=== PATIENT | male | born 1985 | race Caucasian/White ===

== ENCOUNTER 2018-06-09 12:43 | Emergency (ER) | payer OTHER ==
[~2018-06-09] VITALS: Ht 165.1 cm; Wt 68.0 kg
[2018-06-09] MEDS ORDERED: RANITIDINE HCL75 MG PO (13:11)
[2018-06-09] MEDS ORDERED: OMEPRAZOLE20 MG PO (13:11)
[2018-06-09] MEDS ORDERED: PROTONIX40 MG PO (15:04)
[2018-06-09] MEDS ORDERED: ONDANSETRON ODT8 MG PO (15:04)
== END 2018-06-09 15:26 | disposition home or self-care (01) ==
LOC: ED 12:43
DX: K21.9 Gastro-esophageal reflux disease without esophagitis (principal); K52.9 Noninfective gastroenteritis and colitis, unspecified; Z79.899 Other long term (current) drug therapy
CPT/HCPCS: 74177; 80053; 81001; 82150; 83690; 85025; 96361; 96374; 96375; 99284; J1170; J2405; J7030; Q9967

== ENCOUNTER 2018-09-09 06:55 | Day surgery (SDC) | payer OTHER ==
[~2018-09-09] VITALS: Ht 165.1 cm; Wt 63.5 kg
[~2018-09-09 06:55] MED LIST: OMEPRAZOLE20 MG PO; ONDANSETRON ODT8 MG PO; PROTONIX40 MG PO; RANITIDINE HCL75 MG PO; SUCRALFATE1 GM PO
--- NOTE | 2018-09-09 11:19 | NUR ---
09/09/18 Fabian9 Stacey Pringle 1109 PT ARRIVED TO PACU WITH ORAL AIRWAY IN PLACE, O2 MASK 6L, AND PT NONAROUSABLE TO PAINFUL STIMULI. 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 1116 ORAL AIRWAY REMAINS IN PLACE, JAW THRUST NEEDED OFF AND ON TO MAINTAIN AIRWAY. PT SLIGHTLY REACTIVE TO PAIN. VSS. RESP EVEN AND UNLABORED BUT SHALLOW.
[2018-09-09] MEDS ORDERED: IBUPROFEN600 MG PO (11:21)
[2018-09-09] MEDS ORDERED: OXYCODON-ACETA1 EAC2 PO (11:22)
[2018-09-09] MEDS ORDERED: MAPAP325 MG PO (11:22)
--- NOTE | 2018-09-09 11:58 | NUR ---
PATIENT ARRIVES BACK TO DAY SURGERY WITH SQUINTED EYES. PATIENT IS WRITING IN THE BED. CALL LIGHT W/IN REACH. ICED WATER GIVEN. PRN GIVEN FOR PAIN.
--- NOTE | 2018-09-09 12:09 | NUR ---
PER DR. FLOYD'S REQUEST STERI STRIPS TO UMBILICUS REAPPLIED. PATIENT TOLERATES THIS WELL.
--- NOTE | 2018-09-09 12:24 | NUR ---
PT SITTNG UP IN BED, ALERT AND ORIENTED. HE SEEMS PREPARED, MENTIONED THAT HE HAS HAD PAIN AND DISCOMFORT WITH CAROLIN FOR ABOUT A YEAR-LOOKING FORWARD TO SOME RELIEF. FEW QUESTIONS, PT REQUESTED PRAYER. WILL FOLLOW NEEDED
--- NOTE | 2018-09-09 15:21 | NUR ---
PATIENT RESTING W/EYES CLOSED. WAKES EASILY WHEN THIS RN ENTERS THE ROOM. PATIENT DENIES URGE TO VOID. CALL LIGHT W/IN REACH.
--- NOTE | 2018-09-10 16:20 | OR ---
[facility] [address], [place] [address] Signed DATE OF OPERATION: 09/09/2018 SURGEON: Sid Floyd MD PREOPERATIVE DIAGNOSIS: Acalculous cholecystitis. POSTOPERATIVE DIAGNOSIS: Acalculous cholecystitis with cholesterol debris within gallbladder. PROCEDURES: 1. Laparoscopic cholecystectomy with intraoperative cholangiogram. 2. Surgeon-directed fluoroscopy. ANESTHESIA: General endotracheal. ANESTHESIOLOGIST: Luis Alcocer CRNA. INDICATION: This 33-year-old white man is a patient of Dr. Martina Bruno and originally referred for consideration of intractable reflux problems. Upper endoscopy did confirm hiatal hernia and findings suggestive of low-grade esophagitis. Notably, however, he was not much benefitted from PPI medication as well as Carafate, not completely so. Further questioning reveals he had symptoms highly suggestive of biliary disease as well. On that basis, gallbladder ultrasound was performed, which showed no sign of stones. Subsequent CCK HIDA test was performed (actually fat stimulated HIDA scan), which showed essentially no ejection fraction and reproduction of nausea and upper abdominal pain symptoms. On that basis, he is considered to have acalculous cholecystitis and is admitted at this time for cholecystectomy preferred by laparoscopic approach. The risks of bleeding, infection, bile duct injury, need for open procedure, and failure to cure his symptoms were reviewed in detail and he understood and wished to proceed. Notably, if he should not have complete resolution of his symptoms with this operation, consideration will be made for antireflux operation. DESCRIPTION OF PROCEDURE: The patient was brought to the operating room, given a general endotracheal anesthetic. Preoperative antibiotic Ancef was given. Sequential compression device stockings and heparin subcutaneously administered. The abdomen was clipped and prepared with a Electronically Signed By: SID FLOYD MD 09/10/18 1620 PATIENT NAME: MARTINA FLORES OPERATIVE REPORT DATE OF : 87 REPORT #: [id number] PHYSICIAN: SID FLOYD MD PCP: MARTINA BRUNO MD REPORT IS CONFIDENTIAL AND NOT TO BE RELEASED WITHOUT AUTHORIZATION [facility] [address], [place] [address] Signed chlorhexidine solution and draped sterilely. An infraumbilical incision was made and using an open Pavel cannula technique, pneumoperitoneum was achieved to a level of 14 mmHg with carbon dioxide gas. Intraabdominal inspection showed no sign of ascites or carcinomatosis. The liver appeared normal. Three additional trocars were placed in usual configuration in the subxiphoid, right midclavicular, and right anterior axillary line. A 10 mm port was used in the epigastric area. Ports of 5 mm were used in the subcostal area. The gallbladder was exposed and elevated and adhesions of omentum to the undersurface were taken down with blunt electrocautery dissection for better elevation of the gallbladder itself. The infundibulum was grasped and using blunt and electrocautery dissection with a very meticulous technique, the cystic duct was dissected free from surrounding structures. A small branch of the cystic artery to the gallbladder proper was noted and secured and divided as well. The cystic duct was surprisingly small in its size. A clip was applied across gallbladder cystic duct junction and a transverse choledochotomy made in the cystic duct. Attempts to intubate the cystic duct with the Dunn type cholangiocatheter were unsuccessful. An additional transverse choledochotomy was made in the cystic duct and mindful that the duct was nearly the size of the catheter itself. Ultimately, the tip of the catheter could be insinuated into the opening though not threaded down the cystic duct. This was enough to allow for flow, however. Intraoperative cholangiography was undertaken using surgeon-directed fluoroscopy showing free flow of contrast in biliary tree with prompt emptying into the duodenum. There was no sign of biliary anomaly, filling defect or other abnormality. The catheter was removed and the cystic duct was triply clipped and divided and the gallbladder dissected free in a retrograde fashion using electrocautery. A small rent was made in the gallbladder, which allowed for spillage of bile, but no stones. This was quickly grasped and only minimal bile spillage was noted. The gallbladder was placed in an endobag and extracted through the infraumbilical port site without problem, opened on the back table and found to have chronic inflammatory change as well as bits of yellow cholesterol stone type debris. There are no well-formed stones, however. Irrigation was undertaken in subhepatic space and over the liver clearing the fluid entirely. The clips appeared to be secure in the cystic duct and elsewhere. The trocars were removed under direct visualization showing no sign of bleeding. The infraumbilical incision was secured with interrupted 0 Vicryl suture as well as a running 0 PDS suture. Irrigation was undertaken in all the wounds. A 20 mL of 0.25% Marcaine with epinephrine was injected locally. The skin was then closed with interrupted 3-0 Vicryl. Steri-Strips were applied. The patient was ultimately extubated and transferred to recovery in good condition having suffered no complication. Electronically Signed By: SID FLOYD MD 09/10/18 1620 PATIENT NAME: MARTINA FLORES OPERATIVE REPORT DATE OF : [birth year] REPORT #: [id number] PHYSICIAN: SID FLOYD MD PCP: MARTINA BRUNO MD REPORT IS CONFIDENTIAL AND NOT TO BE RELEASED WITHOUT AUTHORIZATION [facility] [address] [place] [address] Signed Sponge, needle, and instrument counts reported as correct x3. MD LISA Lemon/KAUSHAL /[id number] cc: Martina Bruno MD Copies: MARTINA BRUNO MD ~ Electronically Signed By: SID FLOYD MD 09/10/18 1620 PATIENT NAME: MARTINA FLORES OPERATIVE REPORT DATE OF : [birth year] REPORT #: [id number] PHYSICIAN: SID FLOYD MD PCP: MARTINA BRUNO MD REPORT IS CONFIDENTIAL AND NOT TO BE RELEASED WITHOUT AUTHORIZATION
== END 2018-09-09 16:40 | disposition home or self-care (01) ==
LOC: DS 06:55
PROVIDERS: Surgery
PROC: BF13YZZ Fluoroscopy of Gallbladder and Bile Ducts using Other Contrast (ICD-10-PCS; 2018-09-09)
PROC: 0FT44ZZ Resection of Gallbladder, Percutaneous Endoscopic Approach (ICD-10-PCS; principal; 2018-09-09 08:45)
DX: K81.9 Cholecystitis, unspecified (principal); R59.0 Localized enlarged lymph nodes; K21.0 Gastro-esophageal reflux disease with esophagitis; K59.00 Constipation, unspecified; Z79.899 Other long term (current) drug therapy
CPT/HCPCS: 00840; 74300; J0131; J0690; J1100; J1644; J2250; J2270; J2405; J2550; J2704; J2765; J3010; J7120; Q9967

== ENCOUNTER 2020-01-27 08:24 | Day surgery (SDC) | payer OTHER ==
[~2020-01-27] VITALS: Ht 165.1 cm; Wt 70.3 kg
[~2020-01-27 08:24] MED LIST changes: +IBUPROFEN600 MG PO; +MAPAP325 MG PO; +OXYCODON-ACETA1 EAC2 PO
--- NOTE | 2020-01-27 10:28 | NUR ---
01/27/20 1028 Sheets,Stacey 1005 PT ARRIVED TO PACU, ASLEEP. VSS. RESP EVEN AND UNLABORED ON 3L VIA NC. MASK PLACED ON PT. 1014 MD AT BEDSIDE TALKING TO PT.
--- NOTE | 2020-01-27 22:30 | OR ---
[facility] [address], [place] [address] Signed DATE OF OPERATION: 01/27/2020 SURGEON: Sid Floyd MD PREOPERATIVE DIAGNOSES: Severe and worsening gastroesophageal reflux symptoms including spontaneous regurgitation, consideration for operative management. POSTOPERATIVE DIAGNOSES: 1. Small hiatal hernia with mild chronic distal esophagitis. 2. Antral gastritis without evidence of H. pylori on CLOtest. 3. Mildly enlarged ampulla of Vater. PROCEDURE: Esophagogastroduodenoscopy with biopsy. ANESTHESIA: Intravenous sedation, fentanyl 100 mcg, Versed 4 mg total. INDICATIONS: This 35-year-old white man is patient of Dr. 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 He was seen a year ago or so with reflux problems, at which point he was taking 4 Prilosec daily. Upper endoscopy did confirm a small hiatal hernia. Consideration been made for anti-reflux operation. He did undergo video esophagram, which showed significant spontaneous regurgitation and reflux and only a small hiatal hernia. Time has not improved the situation much. He is markedly disabled by what sounds like spontaneous regurgitation and reflux type symptoms. The symptoms are worsened by red meat. Notably, he has had cholecystectomy in the past. He has most benefitted by Carafate taken on a q.i.d. basis. He did not have much improvement with PPI medication previously. He is admitted at this time to undergo upper endoscopy, anticipating possible anti-reflux operation. The risks of bleeding, infection, and perforation related to upper endoscopy was reviewed with him. He understands and wished to proceed. FINDINGS: The vocal cords and surrounding soft tissue were normal. There was no sign of inflammation or edema. The esophagus itself looked reasonably good except in the distal portion, where there was mild inflammation. There was no sign of Carey's epithelium or stricture. The stomach itself had a small amount of bile within the rugal folds appeared normal. There was antral gastritis, but without sign of ulceration proper. Electronically Signed By: SID FLOYD MD 01/27/20 2230 PATIENT NAME: MARKMARTINA BEATRICE OPERATIVE REPORT DATE OF : 87 REPORT #: [id number] PHYSICIAN: SID FLOYD MD PCP: MARTINA BRUNO MD REPORT IS CONFIDENTIAL AND NOT TO BE RELEASED WITHOUT AUTHORIZATION [facility] [address], [place] [address] Signed The pylorus was normal. The duodenum was normal except for mildly enlarged ampulla of Vater. Retroflexed view did show a small hiatal hernia. The retroflexed scope could be withdrawn into the esophagus itself testifying to the poor flap valve itself. CLOtest was negative 15 minutes post procedure. DESCRIPTION OF PROCEDURE: The patient was brought to the endoscopy suite and given topical Hurricaine spray hypopharyngeal anesthesia. A bite block was placed and intravenous sedation given to the point of slurred speech and nystagmus with full cardiopulmonary monitoring. An Olympus video upper endoscope was passed in the hypopharynx. The vocal cords were visualized as normal as was the surrounding soft tissue. Scope was advanced to the esophagus without problem throughout its length, it looked reasonably normal except in the distal portion where there was mild chronic inflammatory change. The scope was passed to the stomach, which was insufflated with air. A small amount of bilious fluid within it. Antral motility was normal. Rugal folds were normal. The antrum did have a punctate appearance suggestive of chronic inflammation. Pylorus was normal without sign of distortion. The scope was passed through it and the duodenum. Duodenum proper was normal. However, the ampulla was slightly enlarged. Biopsies were taken of the duodenal mucosa to assess for celiac disease. The scope was then withdrawn to the distal stomach. Antral biopsies performed for both DERRICK and pathologic testing. Retroflexed view was undertaken, showing a flap valve that was present, but somewhat loose and was space next to the scope of about 1 cm or 2. Retroflexed view and withdrawal of scope in the J position, allowed for visualization of the esophagus testifying to the lax tone of the flap valve. The scope was straightened withdrawn. Biopsies taken of the distal esophageal mucosa. Further withdrawal of the biopsy of the mid esophagus. Scope was removed. The patient was taken to recovery room in good condition. CONCLUDING DIAGNOSES: 1. Poor flap valve and clinical significant and severe medically refractory gastroesophageal reflux. 2. Antral gastritis. PLAN: We will review his pathology reports in light of his symptoms. I have asked him to continue with his Carafate as usual, but he has added Prilosec foot to assess if it has any benefit to symptom control. Consideration is made for anti-reflux surgery in the near future per his request. Electronically Signed By: SID FLOYD MD 01/27/20 9280 PATIENT NAME: MARTINA FLORES BEATRICE OPERATIVE REPORT DATE OF : [birth year] REPORT #: [id number] PHYSICIAN: SID FLOYD MD PCP: MARTINA BRUNO MD REPORT IS CONFIDENTIAL AND NOT TO BE RELEASED WITHOUT AUTHORIZATION [address] [address] Signed MD LISA Lemon/MODL /[id number] cc: Martina Bruno MD Copies: MARTINA BRUNO MD ~ Electronically Signed By: SID FLOYD MD 01/27/200 PATIENT NAME: MARTINA FLORES OPERATIVE REPORT DATE OF : [birth year] REPORT #: [id number] PHYSICIAN: SID FLOYD MD PCP: MARTINA BRUNO MD REPORT IS CONFIDENTIAL AND NOT TO BE RELEASED WITHOUT AUTHORIZATION
--- NOTE | 2020-01-31 10:39 | PATH ---
[facility] [address] [place], [place] [address] Signed SPECIMEN(S): A DUODENUM SPECIMEN(S): B ANTRUM/PYLORUS SPECIMEN(S): C LOWER ESOPHAGUS SPECIMEN(S): D MIDDLE ESOPHAGUS SPECIMEN SOURCE: A. DUODENUM B. ANTRUM/PYLORUS C. LOWER ESOPHAGUS D. MIDDLE ESOPHAGUS CLINICAL HISTORY: Reflux. Postop: Mild esophagitis, mild hiatal hernia. MICROSCOPIC DESCRIPTION: Histologic sections of all submitted blocks are examined by light microscopy. These findings, together with the gross examination, support the pathologic diagnosis. FINAL PATHOLOGIC DIAGNOSIS: A. Duodenum, biopsy: - Duodenal mucosa with no histopathologic abnormality. - Negative for dysplasia or malignancy. B. Stomach, antrum, biopsy: - Antral/oxyntic mucosa with chronic, inactive gastritis. - Negative for Helicobacter organisms on HE stain. - Negative for dysplasia or malignancy. C. Esophagus, lower, biopsy: - Squamous mucosa with chronic inflammation and reactive changes, compatible with reflux esophagitis. - Negative for intestinal metaplasia, dysplasia, or malignancy. D. Esophagus, middle, biopsy: - Squamous mucosa with no histopathologic abnormality. - Negative for intestinal metaplasia, dysplasia, or malignancy. NAL:cml:C2NR GROSS DESCRIPTION: Four specimens are received in four containers, labeled "VERONA." A. The specimen, labeled "VERONA, duodenum biopsy," is received in formalin and consists of two daly soft tissue fragment(s) that measure 0.1 cm in greatest dimension. The specimen is entirely submitted in cassette (A1). PATIENT NAME: MARTINA FLORES PATHOLOGY DATE OF : [birth year] REPORT #: [id number] PHYSICIAN: YADIRA CASTELLANOS PCP: MARTINA ALONSO MD REPORT IS CONFIDENTIAL AND NOT TO BE RELEASED WITHOUT AUTHORIZATION [facility] [address] [place], [place] [address] Signed B. The specimen, labeled "VERONA, antrum biopsy," is received in formalin and consists of two daly soft tissue fragment(s) that measure 0.2 cm in greatest dimension. The specimen is entirely submitted in cassette (B1). C. The specimen, labeled "VERONA, lower esophagus biopsy," is received in formalin and consists of four daly soft tissue fragment(s) that measure 0.4 cm in greatest dimension. The specimen is entirely submitted in cassette (C1). D. The specimen, labeled "VERONA, middle esophagus biopsy," is received in formalin and consists of one daly soft tissue fragment that measures 0.1 cm in greatest dimension. The specimen is entirely submitted in cassette (D1). JS (under the direct supervision of a pathologist) The Gross Description was prepared using a voice recognition system. The report was reviewed for accuracy; however, sound-alike word errors, addition and/or deletions may occur. If there is any question about this report, please contact Client Services. PERFORMING LABORATORY: The technical component was performed by [facility], [address] [place] [id number] (Foundry Tender: Lizet Cheng MD; CLIA# [id number]). [facility], [address] [address] (CLIA# [id number]). Diagnostician: Georgia Dumont MD Pathologist Electronically Signed 01/31/2020 Copies: ~ PATIENT NAME: MARTINA FLORES PATHOLOGY DATE OF : [birth year] REPORT #: [id number] PHYSICIAN: YADIRA CASTELLANOS PCP: MARTINA ALONSO MD REPORT IS CONFIDENTIAL AND NOT TO BE RELEASED WITHOUT AUTHORIZATION
== END 2020-01-27 11:15 | disposition home or self-care (01) ==
LOC: OPS 08:24 → DS 08:24 → OPS 08:25 → DS 08:25 → OPS 09:30 → DS 10:00 → OPS 10:00
PROVIDERS: Surgery
PROC: 0DB78ZX Excision of Stomach, Pylorus, Via Natural or Artificial Opening Endoscopic, Diagnostic (ICD-10-PCS; 2020-01-27)
PROC: 0DB28ZX Excision of Middle Esophagus, Via Natural or Artificial Opening Endoscopic, Diagnostic (ICD-10-PCS; 2020-01-27)
PROC: 0DB38ZX Excision of Lower Esophagus, Via Natural or Artificial Opening Endoscopic, Diagnostic (ICD-10-PCS; 2020-01-27)
PROC: 0DB98ZX Excision of Duodenum, Via Natural or Artificial Opening Endoscopic, Diagnostic (ICD-10-PCS; principal; 2020-01-27 09:30)
DX: K29.50 Unspecified chronic gastritis without bleeding (principal); K21.0 Gastro-esophageal reflux disease with esophagitis; Z79.899 Other long term (current) drug therapy
CPT/HCPCS: 99153; G0500; J2250; J3010; J7121

== ENCOUNTER 2020-02-17 12:54 | Inpatient (IN) | payer OTHER ==
[~2020-02-17] VITALS: Ht 165.1 cm; Wt 70.3 kg
--- NOTE | ~2020-02-17 | DS ---
[facility] [address] [place], [place] [address] Draft ADMISSION DATE: 02/28/2020 DISCHARGE DATE: 03/02/2020 REASON FOR ADMISSION: This 35-year-old white man is a patient of Dr. Martina Bruno and has been evaluated in the past in 2018 for rather significant reflux symptoms. Over time, he has had a progression of his symptoms despite maximal medical therapy including PPI medication and Carafate. He has spontaneous regurgitation in bending over. Upper endoscopy confirmed chronic esophagitis without Carey's epithelium and a small hiatal hernia. A video esophagram in August of 2018 showed normal motility, a small hiatal hernia, and mxuvpxwe-oy-[id number] reflux with Valsalva maneuver. He does have spontaneous regurgitation. He is admitted at this time to undergo Hill posterior gastropexy (reconstruction of the gastroesophageal junction) with intraoperative manometrics. PERTINENT PHYSICAL EXAMINATION: GENERAL: Pleasant white man, in no acute distress. CHEST: Clear. HEART: Regular without murmur. ABDOMEN: Soft and flat. Easily palpated. There is no mass, tenderness, or ascites. EXTREMITIES: Show no clubbing, cyanosis, or edema. HOSPITAL COURSE: On February 28, 2020, he underwent Hill repair (reconstruction of the gastroesophageal junction with posterior gastropexy). He had preoperative placement of the quadratus lumborum block and intraoperative placement of On-Q pain pump catheter. Intraoperative manometric showed a peak pressure of approximately 48 mmHg over a 4 cm intraabdominal segment. The reconstructed flap valve felt optimal. Postoperatively, for the first 12 hours, he was maintained with a decompressive manometric tube and then tube was removed the following day. He was begun on clear liquids, which he tolerated well and was advanced to a full liquid diet which he tolerated well also. He does have episodic belching, but absolutely no reflux symptoms, no spontaneous regurgitation, and tolerating pain pills by discharge quite well. He will maintain a full liquid diet for the time being with special care to avoid meat and bread. We will plan to see him back in approximately 4 weeks and liberalize his diet at that time. Attempts were made to maintain an opiate-free operative experience, though he did require very limited occasions of Dilaudid intravenously administered and Dilaudid oral pain medication, but rare indeed was the need for use of it. PATIENT NAME: MARTINA FLORES DISCHARGE SUMMARY DATE OF : [birth year] REPORT #: [id number] PHYSICIAN: SID FLOYD MD PCP: MARTINA BRUNO MD REPORT IS CONFIDENTIAL AND NOT TO BE RELEASED WITHOUT AUTHORIZATION [facility] [address] [place], [place] [address] Draft MEDICATIONS WILL INCLUDE: 1. Dilaudid 2 mg tablets 2 to 4 mg p.o. q.4 hours as needed for pain, #14, no refill. 2. Tylenol Extra Strength 500 mg tablets, 2 tablets p.o. crushed and taken in jelly or other oral substance q.6 hours as needed for pain. 3. Motrin 600 mg p.o. q.6 hours as needed for pain, also crushed. 4. He will continue his usual medication of terbinafine 250 mg p.o. as needed and fluticasone Allergy Relief spray nasally for allergies. He will discontinue his sucralfate tablet. DISCHARGE DIAGNOSES: 1. Medically refractory gastroesophageal reflux with small hiatal hernia and massive reflux on upper GI, status post Hill repair (reconstruction of the gastroesophageal junction with posterior gastropexy and intraoperative manometrics on February 28, 2020). 2. Reactive airways. MD LISA Lemon/MODL /[id number] cc: Martina Bruno MD Copies: MARTINA BRUNO MD ~ PATIENT NAME: MARTINA FLORES DISCHARGE SUMMARY DATE OF : [birth year] REPORT #: [id number] PHYSICIAN: SID FLOYD MD PCP: MARTINA BRUNO MD REPORT IS CONFIDENTIAL AND NOT TO BE RELEASED WITHOUT AUTHORIZATION
--- NOTE | 2020-02-28 10:02 | NUR ---
02/28/20 1002 Marya Mejia 0982 PATIENT ARRIVES TO PACU RESTING WITH EYES CLOSED. DOES NOT OPEN EYES WITH VERBAL COMMAND. DOES MOVE ARMS WITH PAINFUL STIMULI, AND REPOSITIONS SELF TO RIGHT SIDE. RESP EVEN AND UNLABORED, MASK AT 6 LITERS. NG LEFT NARE WITH 4 PORT CLAMPED. ON-Q PUMP WITH 2 PORTS UNCLAMPED ON ARRIVAL TO PACU. 1000 PATIENT CONTINUES TO REST WITH EYES CLOSED. RESP EVEN AND UNLABORED, MASK CONTINUED AT 6 LITERS.
--- NOTE | 2020-02-28 10:52 | NUR ---
PT ARRIVED TO FLOOR VIA BED. PT IS DROWSY BUT ANSWERS QUESTIONS APPROPRIATLY. LR AT 85 STARTED. NG TUBE PLACED TO LIWS. SCD'S ON. MIDLINE DRESSING WITH SOME SMALL SHADOWING. ON CUE PUMP IN PLACE. VITALS TAKEN AND STABLE.
--- NOTE | 2020-02-28 11:53 | NUR ---
POST OP VITALS TAKEN AND STABLE. NO CHANGE TO SHADOWING OD MIDLINE INCISION. PT REPORTING PAIN 5/10. WATER PROVIDED. DENIES NAUSEA. PT STILL DROWSY. HAS NOT OPENED EYES, JUST TALKS TO NURSE.
--- NOTE | 2020-02-28 13:09 | NUR ---
ASSESSMENT COMPLETED. NO CHANGES. PT ASSISTED TO SIDE OF BED TO ATTEMPT TO VOID. AT BEDSIDE. REPORTS PAIN 5/10.
[2020-02-28] MEDS ORDERED: TERBINAFINE HC250 MG PO (13:26)
--- NOTE | 2020-02-28 13:27 | NUR ---
PT REPORTING 5/10 PAIN, TYLENOL/TORDOL UNVAILABLE. 0.5MG DILAUDID ADMINSTERED. CPOX IN PLACE. LR AT 85 INFUSING. PT DRANK SOME WATER. REFUSING TO TRY LIQUID LUNCH TRAY. ATTEMPTED VOID UNSUCCESSFUL. CALL LIGHT IN REACH.
--- NOTE | 2020-02-28 14:20 | OR ---
[facility] [address], [place] [address] Signed DATE OF OPERATION: 02/28/2020 SURGEON: Sid Floyd MD PREOPERATIVE DIAGNOSES: 1. Medically refractory gastroesophageal reflux disease with small hiatal hernia. 2. Spontaneous regurgitation. POSTOPERATIVE DIAGNOSES: 1. Medically refractory gastroesophageal reflux disease with small hiatal hernia. 2. Spontaneous regurgitation. PROCEDURE: 1. Hill repair (reconstruction of the GE junction with posterior gastropexy). 2. Intraoperative manometrics. 3. Placement of On-Q pain pump catheter, bilateral subcostal TAP block type. ANESTHESIA: General endotracheal, Jaskaran Haider CRNA. Pre operative quadratus lumborum block INDICATION: This 35-year-old white man is a patient of Dr. Martina Bruno. He was evaluated in the past by me in 2018 for rather significant reflux problems. He was marginally benefitted by omeprazole, but ultimately most benefitted by Carafate. He has had recurrence and persistence of his symptoms over time and complains of spontaneous regurgitation in particular after bending over, straining, or lifting with full stomach. He did undergo videoesophagram to assess motility on August 09, 2018 showing normal motility, small hiatal hernia and moderate to massive reflux with Valsalva maneuver. He is not excessively obese, but he notes when he increases his weight generally, his symptoms are worsened. More recently, he has been taking PPI medication at least b.i.d. as well as Carafate. An upper endoscopy has been performed, which showed chronic esophagitis and a small hiatal hernia. No sign of neoplasm or Carey's epithelium. After full consideration of the various options of management, both surgical and nonsurgical and vrious types of operative interventions including endoscopic, laparoscopic and open type procedures, he opts to undergo Hill posterior gastropexy by open technique with intraoperative manometrics. The risks of bleeding, infection, failure of the operation, splenic injury, and other unforeseen complications were all reviewed in Electronically Signed By: SID FLOYD MD 02/28/20 1420 PATIENT NAME: FLORESMARTINA PARRA BEATRICE OPERATIVE REPORT DATE OF : 87 REPORT #: [id number] PHYSICIAN: SID FLOYD MD PCP: MARTINA BURNO MD REPORT IS CONFIDENTIAL AND NOT TO BE RELEASED WITHOUT AUTHORIZATION [facility] [address], [place] [address] Signed detail. He understands and wished to proceed. FINDINGS: Though the patient is not obese, he had a fair amount of intraabdominal adiposity after all. This included the omentum. The GE junction was somewhat patulous. The spleen was normal as was the liver. There was surgical absence of the gallbladder. Reconstructed GE junction was accomplished without problem showing an optimal palpable flap valve and intraoperative manometric showing a peak pressure of approximately 40 mmHg over a 3-4 cm intraabdominal segment. The palpable reconstructed flap valve appeared optimal. Notably, the patient underwent a quadratus lumborum block by the compensation supervisor prior to anesthesia. On-Q pain pump catheters were placed as well. An opiate-free anesthetic has thus far been accomplished. DESCRIPTION OF PROCEDURE: The patient was brought to the operating room from the preoperative area having undergone a quadratus lumborum block by the compensation supervisor. He was given a general endotracheal anesthetic without problem. Preoperative antibiotic Ancef was given. Sequential compression device stockings were used and heparin subcutaneously administered. An incision was made extending from the tip of the xiphoid to above the umbilicus later extended inferiorly for better exposure. The abdomen was entered without problem showing no sign of ascites or carcinomatosis. The colon appeared normal as did the stomach. Liver was quite normal. An upper hand retractor was used to elevate this costal margins. Palpation behind the spleen showed it to be without scarring. A rolled pack was placed behind the spleen to take tension off the medial aspect of it. The left lateral segment of liver was elevated and the gastrohepatic omentum incised with electrocautery. Better exposure was afforded by mobilization of the left lateral segment of the liver freeing the diaphragmatic attachments with electrocautery and retracting it medially. A Bookwalter retractor was attached to the table. Medial retraction of the left lateral segment of the liver allowed for good visualization of the caudate lobe of the liver and GE junction area. Using a Bookwalter retractor and retracting the left lateral segment medially, the phrenoesophageal ligament adherent to the right justin was incised with electrocautery and blunt dissection. A Mckinney clamp was applied to the right justin and sequentially manipulated allowing for incision of the membrane securing the crura of the diaphragm to the GE junction and the esophagus. Electronically Signed By: SID FLOYD MD 02/28/20 8206 PATIENT NAME: MARKMARTINA BARRON OPERATIVE REPORT DATE OF : 87 REPORT #: [id number] PHYSICIAN: SID FLOYD MD PCP: MARTINA BRUNO MD REPORT IS CONFIDENTIAL AND NOT TO BE RELEASED WITHOUT AUTHORIZATION [address] [address] Signed Elevation of the proximal stomach allowed for visualization of the left justin. This too was freed with both electrocautery and blunt dissection. Complete freeing of the gastrophrenic attachments was undertaken. There was no strict need for dividing any short gastric vessels. Meticulous care was maintained to free the esophagus and GE junction from its surrounding filmy attachments. Using the hook retractor, the stomach was retracted to the left allowing for dissection of the preaortic fascia inferiorly to the transverse portion of the pancreas. Consideration was made for elevating the preaortic fascia from the underlying aorta and passing a Orlando cervical dilator however, the tissue was rather wills and it was deemed safer to avoid such a dissection. given the crowded field we were dealing with. On that basis, security of the wrap for gastropexy would be to the preaortic fascia simply elevating it from the underlying aorta. The left and right crura were reapproximated with two separate interrupted 0 silk sutures with James felt pledgets soaked in Betadine. The index finger was allowed to pass alongside the esophagus confirming that it was not excessively tight. The anterior and posterior phrenoesophageal bundles were grasped with Mckinney clamps to allow precise application of the repair sutures. Sutures used for repair were 0 Ethibond with James felt pledgets soaked in Betadine. This included a seromuscular bite of the anterior stomach and anterior bundle as well as the posterior bundle ultimately pexing to the base of the right justin at the condensation of the preaortic fascia using the previously placed silk sutures to elevate the preaortic fascia away from the underlying aorta. Four such repair sutures were placed in the technique of Keegan. The sutures were then secured with surgeon's throw. Palpation of the resultant flap valve showed it to be good. Plans were then made for intraoperative manometrics. Using a perfusion catheter and arterial blood pressure catheter system, intraoperative manometrics were performed in the standard way. The pullout pressure appeared to be approximately 38 mmHg over a 3-4 cm segment. This was reproducible. The sutures were secured and the calibration undertaken showing a good waveform and optimal peak pressure. The nasogastric manometric tube was secured in place and allowed for decompression. Irrigation was undertaken and photographs were taken as well. The fundus of the stomach Electronically Signed By: SID FLOYD MD 02/28/20 1420 PATIENT NAME: MARTINA FLORES OPERATIVE REPORT DATE OF : 87 REPORT #: [id number] PHYSICIAN: SID FLOYD MD PCP: MARTINA BRUNO MD REPORT IS CONFIDENTIAL AND NOT TO BE RELEASED WITHOUT AUTHORIZATION [facility] [address] [place] [id number] Signed was secured to the margin of the esophageal hiatus of the diaphragm to avoid herniation of the cardia into the mediastinum. This was accomplished with 0 silk sutures with James felt pledgets. Palpation of the flap valve showed it to be optimal in the decompressive manometric tube manipulated into optimal position for decompression postoperatively. Plans were then made for closure. The left lateral segment of the liver was allowed to return to its natural position. The pack behind the spleen was removed without problem. Left and right On-Q pain pump catheters were placed just superficial to the transversus abdominis muscle bilaterally. The midline fascia was reapproximated with running bidirectional #1 PDS suture. Subcutaneous tissue was irrigated. Skin closed with running subcuticular 3-0 Vicryl. Steri-Strips were applied. Op Sites were applied to the On-Q catheters and the catheters were secured to the On-Q pump device. A silver sponge dressing was applied. The patient was ultimately extubated and transferred to recovery room in good condition having suffered no known complications. Sponge, needle, and instrument counts were reported as correct. Blood loss was rather minimal certainly less than 25 mL in aggregate. MD LISA Lemon/MODL /[id number] cc: Martina Bruno MD Copies: MARTINA BRUNO MD ~ Electronically Signed By: SID FLOYD MD 02/28/20 1420 PATIENT NAME: MARTINA FLORES OPERATIVE REPORT DATE OF : 87 REPORT #: [id number] PHYSICIAN: SID FLOYD MD PCP: MARTINA BRUNO MD REPORT IS CONFIDENTIAL AND NOT TO BE RELEASED WITHOUT AUTHORIZATION
--- NOTE | 2020-02-28 15:08 | NUR ---
PT REFUSING TO GET OOB TO VOID D/T 02/14 PAIN WITH MOVEMENT. IV TYLENOL ADMISNTERED. PT AGGREED TO ATTEMPT TO VOID AFTER AND AMBULATE HALLS.
[2020-02-28] MEDS ORDERED: FLONASE ALLERG9.9 ML NAS (15:30)
--- NOTE | 2020-02-28 15:30 | NUR ---
NURSE TO BEDSIDE TO WALK PT AND ATTEMPT TO VOID. PT REPORTING NAUSEA. ZOFRAN GIVEN.
--- NOTE | 2020-02-28 15:31 | NUR ---
MED REC COMPLETE
--- NOTE | 2020-02-28 15:59 | NUR ---
PT UP. VOIDED 100ML. AMBULATED ONE LAP IN HALLS.
--- NOTE | 2020-02-28 18:44 | NUR ---
PT DOING WELL. VOIDED 200ML SINCE SURGERY. AMBULATED HALLS X1 LAP. PAIN CONTROLLED WITH TORIDOL AND TYLENOL. DILAUDID USED ONE TIME D/T TYLENOL AND TORDOL BEING UNAVALALE. NG TUBE TO LIWS. MINDLINE WITH SOME SHADOWING BUT WNL. ON-CUE PUMP IN PLACE. BOWEL TONES HYPOACTIVE. CLEARS FOR COMFORT. DC NG TUBE IN AM.
--- NOTE | 2020-02-28 19:20 | NUR ---
BEDSIDE REPORT RECEIVED FROM ESTELA NOVAK. pt RESTING IN BED, HOB ELEVATED. NGT TO LOW INT WALL SUCTION. pt RATES PAIN 4/10 IN ABDOMEN, SMALL AMT SS DRAINAGE ON MIDLINE DRESSING, ON Q PUMP IN PLACE. CALL LIGHT IN REACH. IN ROOM. NO REQUESTS AT THIS TIME, PLAN TO AMBULATE HALLWAY THIS EVENTING.
--- NOTE | 2020-02-28 20:05 | NUR ---
PHONE CALL TO . LEFT MESSAGE TO RETURN CALL FOR PRN PAIN MEDICATION ORDER VERIFICATION.
--- NOTE | 2020-02-28 20:49 | NUR ---
CALL LIGHT ANSWERED. PRN OFIRMEV ADMINISTERED FOR ABDOMINAL PAIN. IV FLUSHED, FLUID INFUSING WNL ORDERED. pt C/O NAUSEA, PRN NAUSEA MEDICATION ADMINISTERED. BOWEL TONES HYPOACTIVE, ABD DRAINAGE UNCHANGED ON MIDLINE DRESSING. pt DEMONSTRATES IS USE X 3. DROWSY AFTER PRN NAUSEA MEDICATION. CALL LIGHT IN REACH. IN ROOM. SPO2 WNL ON RA. VSS.
--- NOTE | 2020-02-28 20:55 | NUR ---
LEFT MESSAGE ON HOME PHONE FOR MD, PHONE CALL TO CELL PHONE, NO ANSWER.
--- NOTE | 2020-02-28 21:19 | NUR ---
PHONE CALL FROM , ORDERS RECEIVED FOR PRN LOSANGES, PRN OFIRMEV, NO CARBONATED BEVERAGES, NO HOT OR COLD BEVERAGES REPEATED BACK. OKAY FOR pt NOT TO AMBULATE TONIGHT TO AVOID DRY HEAVING, ABDOMINAL STRAINING. LEAVE NGT IN MORNING, MD WILL ASSESS. ALL ORDERS REPEATED BACK TO VERIFY.
--- NOTE | 2020-02-28 22:19 | NUR ---
CHICKEN NOODLE SOUP, CRACKERS AND ANDRA MCHUGH.
--- NOTE | 2020-02-28 22:52 | NUR ---
CALL LIGHT ANSWERED. URINAL EMPTIED X 2, 650 ML VOID, CLEAR YELLOW URINE. pt DENIES PAIN AT THIS TIME STATES "I'M OKAY". NGT IN PLACE. IVF INFUSING WNL ORDERED. SCDS ON. pt EDUCATED ON ROOM TEMP PO FLUIDS, PLAN OF CARE. QUESTIONS ANSWERED. CALL LIGHT IN REACH.
--- NOTE | 2020-02-29 01:30 | NUR ---
PULSE OXIMETER ALARMING, SPD ALERT, SETTINGS ADJUSTED. pt AWAKE, SATURATIONS WNL ON RA, VSS. pt RATES PAIN 6/10 IN ABDOMEN, UNABLE TO SLEEP. PRN MEDICATION ADMINISTERED. pt ASSESSMENT COMPLETE. BOWEL TONES ACTIVE AT THIS TIME, ABD DISTENDED, SOFT, DENIES FLATUS. NGT TO INT WALL SUCTION. MIDLINE DRESSING INTACT, DRY, NO NEW DRAINAGE NOTED. ON Q PUMP IN PLACE. CALL LIGHT IN REACH. HOB ELEVATED. SCDS ON.
--- NOTE | 2020-02-29 03:48 | NUR ---
pt RESTING IN BED WITH HOB ELEVATED, EYES CLOSED, APPEARS TO BE SLEEPING. BREATHING UNLABORED. SPO2 WNL ON RA.
--- NOTE | 2020-02-29 05:51 | NUR ---
pt SLEEPING, AWAKENS TO VOICE. VSS. RATES PAIN 3/10 IN ABDOMEN, PRN TORADOL ADMINISTERED FOR PAIN CONTROL. APPLE JUICE PROVIDED. CALL LIGHT IN REACH. NO ADDITIONAL REQUESTS.
--- NOTE | 2020-02-29 05:56 | NUR ---
pt'S PAIN WELL CONTROLLED THROUGHOUT SHIFT WITH PRN PAIN MEDICATION. QS URINE OUTPUT. IN BED THORUGHOUT SHIFT, OKAY PER MD. NGT TO LOW INT WALL SUCTION, 90 MLS OUTPUT. DRESSING DRY AND INTACT, SANGUINOUS DRAINAGE UNCHANGED THROUGHOUT SHIFT. ON Q PUMP CATHETERS IN PLACE BILATERALLY RIGHT AND LEFT ABDOMEN. BOWEL TONES ACTIVE, DENIES FLATUS. ABD DISTENDED, SOFT. PRN NAUSEA MEDICATION X 1 AT START OF SHIFT. USING IS APPROPRIATELY. SCDS ON.
--- NOTE | 2020-02-29 07:29 | NUR ---
received report from wilbert palma. pt sitting up in bed. pt states that he is starting to wake up at this time
--- NOTE | 2020-02-29 08:16 | NUR ---
IN PTS ROOM TO GIVE MORNING MEDS AND DO ASSESSMENT. PT STATES THAT HIS PAIN IS A 3/10. PT STATES THAT HIS NG TUBE IS NOT ANNOYING THIS AM. DISUCSSED WITH PT THE PLAN FOR THE DAY, TRY TO GET PT UP AND WALKING, WE WILL DO A ROAD TEST TO THE RESTROOM BEFORE HAVING PT WALK OUT IN THE HALLS. PT AGREEABLE TO THIS PLAN.
--- NOTE | 2020-02-29 08:55 | NUR ---
IN PTS ROOM. DR. FLOYD IN PTS ROOM TO REMOVE NG TUBE. PT TOLERATED WELL.
--- NOTE | 2020-02-29 09:29 | NUR ---
PATIENT USING THE BATHROOM. IN ROOM. PATIENT BACKS TO BED ASSISTED BY . LINENS CHANGED BY KIRSTY AGUILAR. VITAL SIGNS AND I&O DONE. CALL LIGHT WITHIN REACH. NO OTHER NEEDS AT THIS TIME
--- NOTE | 2020-02-29 10:24 | NUR ---
PT UP TO WALK- PT TOLERATED ONE LAP WELL. PT BACK TO ROOM AND REQUESTING SOME TYLENOL FOR PAIN 12/15. DISCUSSED WITH PT THAT WE WILL TRY THE TYLENOLAND THEN GO TO THE DILUADID IF NEED BE
--- NOTE | 2020-02-29 12:41 | NUR ---
IN PTS ROOM TO ENCOURAGE PT TO GET UP AND WALK. PT AGREEABLE AT THIS TIME
--- NOTE | 2020-02-29 12:46 | NUR ---
PT UP AND WALKING AIKEN WITH AT THIS TIME. PT DENIES ANY NAUSEA BUT DOES STATE HE HAS PAIN WITH MOVEMENT
--- NOTE | 2020-02-29 13:44 | NUR ---
PT ALERT, ORIENTED AND SUPPORTED BY HIS CHAPO. PT SEEMED IN PAIN, PT SAID IT WAS AT 5-6. WILL INFORM ESTELA CREWS. BOTH FEEL INFORMED, HAD GOOD VISIT PT REQUESTED PRAYER. WILL CONTINUE TO FOLLOW
--- NOTE | 2020-02-29 13:59 | NUR ---
PER THIS RN ORDERED A CHOCOLATE ENSURE FOR PT
--- NOTE | 2020-02-29 14:19 | NUR ---
PATIENT RESTING IN BED. IN ROOM. VITAL SIGNS AND I&O DONE. CALL LIGHT WITHIN REACH. NO OTHER NEEDS AT THIS TIME
--- NOTE | 2020-02-29 14:52 | NUR ---
CALL LIGHT ANSWERED. PATIENT ASKS FOR PAIN MEDICATION. RN NOTIFIED
--- NOTE | 2020-02-29 15:12 | NUR ---
Spoke with pt and his . 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 Pt and state he will ahve good support. No DME. They live with their two small children. Planned ahead and will have childcare for the next two weeks. Pt denies needs to go home, feels safe taking him home.
--- NOTE | 2020-02-29 15:31 | NUR ---
PT PUT CAMP RECREATION SPECIALIST LIGHT TO REQUEST MORE PAIN MEDS. PT RATED PAIN 6/10. PROVIDED PT WITH 30MG OF TORADOL AT THIS TIME. PT ALSO STATED THAT THE ENSURE IS SITTING WELL ON HIS STOMACH AND HAS NO NOTED NAUSEA AT THIS TIME
--- NOTE | 2020-02-29 16:26 | NUR ---
PT UP AND WALKING AT THIS TIME WITH PTS . PT REPORTS NO NAUSEA OR TOO MUCH INCREASED PAIN
--- NOTE | 2020-02-29 17:08 | NUR ---
PATIENT UP IN BED, EYES CLOSED, WOKE FOR VITALS. VITALS AND I&OS CHARTED. CALL LIGHT IN REACH, NO OTHER NEEDS AT THIS TIME.
--- NOTE | 2020-02-29 18:22 | NUR ---
IN PTS ROOM TO CHECK ON HIM. PT STATES THAT PAIN IS CONTROLLED WELL AT THIS TIME WITH THE TORADOL ON BOARD. PT STATES THAT HE DOESN'T NEED TYLENOL AT THIS TIME. DISCUSSED WITH PT WHEN THE NEXT DOSE OF MEDS ARE DUE, PT UNDERSTOOD
--- NOTE | 2020-02-29 18:38 | NUR ---
PT HAD A GOOD DAY. TOLERATED WELL HAVING NG TUBE TAKEN OUT, PT ALSO DID AT LEAST 3 WALKS AROUND THE UNIT WITH HIS TODAY. PT STATES THAT HIS PAIN IS CONTROLLED WITH TYLENOL AND TORADOL. PT HAS HAD NO NAUSEA TODAY.
--- NOTE | 2020-02-29 19:36 | NUR ---
BEDSIDE REPORT FROM NURSE ELEONORA. pt GOT UP AND BEGAN WALKING THE UNIT. APPEARS IN GOOD SPIRITS AND MOTIVATED.
--- NOTE | 2020-02-29 20:40 | NUR ---
ASSESSMENT COMPLETE. pt C/0 PAIN 02/14. PRN TYLENOL ELIXIR ADMINISTERED. pt TOLERATING ENSURE AND PUDDING WELL. REQUESTS CHICKEN BROTH WHICH IS PROVIDED. VSS, WOUND DRESSING UNCHANGED. ON-Q IN PLACE AND 2+2 SETTING. pt REPORTS REPORTS FREQUENT BELCHING AFTER DRINKING TOO QUICKLY. URINE OUTPUT IS GOOD AND URINE IS CLEAR AND YELLOW. BOWEL TONES ACTIVE. NNO BM THUS FAR. CALL LIGHT WITH IN REACH.
--- NOTE | 2020-03-01 00:15 | NUR ---
ROUNDS COMPLETE. pt SLEEPING. NO SIGNS OF DISTRESS.
--- NOTE | 2020-03-01 01:05 | NUR ---
CALL LIGHT ANSWERED. pt REQUESTS PRN PAIN MEDS FOR 5/10 ABDOMINAL PAIN. PRN TORADOL PROVIDED.
--- NOTE | 2020-03-01 02:58 | NUR ---
ROUND COMPLETE. pt SLEEPING. NO SIGNS OF DISTRESS.
--- NOTE | 2020-03-01 06:45 | NUR ---
pt HAD A RESTFUL NIGHT, WAS SEEN SLEEPING MUCH OF THE NIGHT. PAIN WAS MAINTAINED BY PRN NON-OPIATE PAIN MEDS. VSS, BOWEL TONES ACTIVE. SURGICAL DRESSING UNCHANGED WITH SMALL AMOUNT OF DRAINAGE ON GAUZE. ON-Q INTACT.
--- NOTE | 2020-03-01 07:50 | NUR ---
Spoke mikel Mullen. He is watching TV and drinking ensure. Denies complaints.
--- NOTE | 2020-03-01 08:34 | NUR ---
ASKED PATIENT IF HE WOULD LIKE TO TAKE A SHOWER AND HE SAID NO. BUT MAYBE ON A BED BATH. PATIENT IS INDEPENDENT. ALSO PATIENT WALKED 1 LAP AROUND MED SURG. THIS MORING. PATIENT IS NOW RESTING.
--- NOTE | 2020-03-01 09:30 | NUR ---
DR FLOYD IN TO SEE PT, ADVANCING DIET, PT SITTING UP IN BED WATCHING TV, DENIES NAUSEA, REQUESTING TORADOL FOR PAIN, STATES HE WILL TRY TYLENOL NEXT, DENIES NAUSEA.
--- NOTE | 2020-03-01 13:02 | NUR ---
PT ASLEEP-ESTELA RONQUILLO REQUESTED I ALLOW PT TO REST
--- NOTE | 2020-03-01 13:30 | NUR ---
PT ORDERED SMOOTHIE FOR LUNCH, TOLERATED WELL, RESTING ON BED WITH AT BEDSIDE. UP AND ABOUT ROOM INDEP. TAKING FLUIDS WELL, REMAINS SL.
[2020-03-01] MEDS ORDERED: TYLENOL EXTRA500 MG PO (17:42)
[2020-03-01] MEDS ORDERED: HYDROMORPHONE HC2 MG PO (17:42)
--- NOTE | 2020-03-01 18:04 | NUR ---
DR FLOYD IN TO SEE PT, PLEASED WITH PROGRESS, PLAN TO DC HOME IN AM, PT TOLERATING PO, GOOD PAIN CONTROL USING TYLENOL.
--- NOTE | 2020-03-01 19:05 | NUR ---
SHIFT REPORT RECEIVED FROM DAVID RONQUILLO AT BEDSIDE. PT AWAKE AND RESTING IN BED. PT DENIES NEEDS AT THIS TIME, MIDLINE INCISION WM WITH STERI STRIPS. OLD DRY SEROSANGUINEOUS SHADOWING NOTED WITH STERI STRIPS, WILL MONITOR.
--- NOTE | 2020-03-01 19:39 | NUR ---
THIS RN IN ROOM FOR 810 ABDOMINAL PAIN R/T POST-OP. PRN TYLENOL CRUSHED AND GIVEN IN PUDDING PER PT REQUEST. PT VIDEO CALLING WITH FAMILY, DENIES ADDITIONAL NEEDS, CALL LIGHT IN REACH.
--- NOTE | 2020-03-01 20:21 | NUR ---
VITALS AND I&OS DONE AND CHARTED. FRESH WATER GIVEN. BEDSIDE TABLE AND CALL LIGHT IN REACH. PT NEEDS NOTHING MORE AT THIS TIME.
--- NOTE | 2020-03-01 20:24 | NUR ---
ASSESSMENT COMPLETE, SCHEDULED MEDS GIVEN (SEE EMAR). PT REPORTS PAIN HAS IMPROVED AND IS TOLERABLE AT 3/10. MIDLINE REMAINS GAS LOAD DISPATCHER WITH OLD DRY SEROSANGUINEOUS SHADOWING TO STERI STRIPS, WILL MONITOR. PT DENIES NAUSEA, BOWEL TONES ACTIVE. IV SITE WNL, SALINE LOCKED WITH BRISKED BLOOD RETURN. PT WATCHING A MOVIE, NO FURTHER NEEDS, CALL LIGHT IN REACH.
--- NOTE | 2020-03-01 23:44 | NUR ---
PRN TORADOL GIVEN FOR 5/10 PAIN (SEE EMAR). IV SITE WNL, NO ADDITIONAL NEEDS. CALL LIGHT IN REACH.
--- NOTE | 2020-03-02 00:45 | NUR ---
PT RESTING IN BED, EYES CLOSED. RR EVEN AND UNLABORED. NO SIGNS OF PAIN OR DISTRESS NOTED. CALL LIGHT IN REACH.
--- NOTE | 2020-03-02 03:30 | NUR ---
THIS RN IN ROOM AND ROUNDING ON PT. PT AWAKE, DENIES CONCERNS OR NEED FOR PAIN MEDICATIONS AT THIS TIME. WILL MONITOR, CALL LIGHT IN REACH.
--- NOTE | 2020-03-02 05:04 | NUR ---
PT HAD AN UNEVENTFUL NIGHT, SLEPT OFF AND ON. PAIN CONTROLLED WITH PRN TYLENOL AND PRN TORADOL. VSS, PT CALLS APPROPERIATELY. SBA. SOFT AND BITE SIZED DIET, TOLERATING WELL. NO NAUSEA REPORTED. 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 VOIDING QS, NO BM THIS SHIFT.
--- NOTE | 2020-03-02 05:28 | NUR ---
ASSESSMENT COMPLETE, NO NEW CHANGES OR CONCERNS. PT DUE TO VOID, BUT DENIES NEED TO AT THIS TIME. WILL MONITOR. MIDLINE WM, STERI STRIPS REMAIN IN PLACE. PT DENIES NEED FOR PAIN MEDICATION, CALL LIGHT IN REACH.
--- NOTE | 2020-03-02 05:47 | NUR ---
prn tylenol given for 3/10 abdominal pain (see emar). no further needs, call light in reach.
--- NOTE | 2020-03-02 09:15 | NUR ---
PT UP ABOUT ROOM INDEP, STATES HE IS ABLE TO TAKE FLUIDS BUT IT'S SLOW GOING, LIKE TO DRINK SMOOTHIES, INCISION WELL APPROX WITH STERI STRIPS, OLD DRAINAGE AT SITE, NO REDNESS. STATES TYLENOL EFFECTIVE PAIN RELIEF. BREAKFAST IN ROOM.
--- NOTE | 2020-03-02 10:00 | NUR ---
Spoke with Sebas. He plans on going home today, denies needs to dc. Will go home with and family.
--- NOTE | 2020-03-02 11:14 | NUR ---
PT REQUESTED DILAUDID FOR DISCOMFORT, LUNCH ORDERED, DISCUSSED DISCHARGE INSTRUCTIONS MEDICATIONS, DIET AND EXAMPLES OF FOODS. PT FEELS HE IS DOING WELL AND IS READY TO GO HOME.
--- NOTE | 2020-03-02 11:39 | NUR ---
PT SITTING UP IN BED, BREAKFAST ON TABLE AT BS. PT MENTIONED HE IS TO DC TODAY AND SEEMS TO BE READY.GAVE BLESSING
--- NOTE | 2020-03-02 11:56 | NUR ---
PT STATES DILAUDID HELP FOR A SHORT WHILE BUT CONT. TO FEEL DISCOMFORT WHEN HE EATS OR DRINKS, FEELS ITS GAS PAINS MAYBE SPASMS, DECLINES SECOND DILAUDID, WILL GIVE TYLENOL NOW. HAS BEEN UP WALKING. IN ROOM.
--- NOTE | 2020-03-02 14:00 | NUR ---
PT ATE CUP OF YOGURT AND STATES HE FEELS MUCH BETTER. LAYING ON BED TAKING NAP. AT BEDSIDE.
--- NOTE | 2020-03-02 14:47 | NUR ---
DR FLOYD IN TO SEE PT, STATES PT IS READY TO GO HOME, DISCHARGE INSTRUCTIONS GIVEN TO PT AND HIS , VERBALIZES UNDERSTANDING OF MEDICATIONS AND FOLLOWUP APPOINTMENT. DENIES ANY NEEDS, WILL SHOWER WITH WIFES HELP AND THAN GO HOME.
== END 2020-03-02 15:00 | disposition home or self-care (01) | DRG 328 ==
LOC: DSVR 02-28 06:30 → MS 02-28 06:30
PROVIDERS: ADMIT Surgery
PROC: 0DQ40ZZ Repair Esophagogastric Junction, Open Approach (ICD-10-PCS; 2020-02-28)
PROC: 3E0T3BZ Introduction of Anesthetic Agent into Peripheral Nerves and Plexi, Percutaneous Approach (ICD-10-PCS; 2020-02-28)
PROC: 3E0T33Z Introduction of Anti-inflammatory into Peripheral Nerves and Plexi, Percutaneous Approach (ICD-10-PCS; 2020-02-28)
PROC: 0DS60ZZ Reposition Stomach, Open Approach (ICD-10-PCS; principal; 2020-02-28 06:45)
DX: K21.0 Gastro-esophageal reflux disease with esophagitis (principal); K44.9 Diaphragmatic hernia without obstruction or gangrene; G89.18 Other acute postprocedural pain; J45.909 Unspecified asthma, uncomplicated; Z79.899 Other long term (current) drug therapy
CPT/HCPCS: 00790; 36556; 76942; 94760; 94762; J0131; J0330; J0690; J1100; J1170; J1644; J1790; J1885; J2001; J2250; J2405; J2550; J2704; J2795; J3010; J3475; J7121

== ENCOUNTER 2021-11-18 06:30 | Day surgery (SDC) | payer OTHER ==
[~2021-11-18] VITALS: Ht 165.1 cm; Wt 65.0 kg
[~2021-11-18 06:30] MED LIST changes: +FLONASE ALLERG9.9 ML NAS; +HYDROMORPHONE HC2 MG PO; +TERBINAFINE HC250 MG PO; +TYLENOL EXTRA500 MG PO
[2021-11-18] MEDS ORDERED: CARAFATE1 GM/10 ML PO (07:07)
--- NOTE | 2021-11-18 08:11 | NUR ---
11/18/21 0811 Marya Mejia 0807 PATIENT ARRIVES TO PACU SLEEPING. RESP EVEN AND UNLABORED, NC AT 2 LITERS. OXYGEN TURNED OFF.
--- NOTE | 2021-11-19 22:00 | OR ---
[facility] [address], [place] [address] Signed DATE OF OPERATION: 11/18/2021 SURGEON: Sid Floyd MD PREOPERATIVE DIAGNOSES: 1. History of Hill repair for intractable gastroesophageal reflux. 2. New onset of burning epigastric pain without associated reflux or dysphagia. POSTOPERATIVE DIAGNOSES: 1. Optimal reconstructive flap valve. No evidence of esophagitis. 2. Diffuse gastritis with pyloric channel kissing erosions. PROCEDURE: Esophagogastroduodenoscopy with biopsy. ANESTHESIA: Intravenous sedation; fentanyl 100 mcg, Versed 4 mg. 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 He has previously undergone cholecystectomy. He has no reflux symptoms now, but does have significant epigastric pain which is worse in the morning and relieved by intake of ice cream. The patient is not obese. He is admitted at this time to undergo upper endoscopy to better characterize the problem. FINDINGS: There was no evidence of reflux esophagitis and a hiatal hernia was well repaired. Flap valve was considered optimal. There was, however, diffuse gastritis as well as two "kissing" erosions at the pyloric channel. The duodenum was normal. CLOtest was negative. DESCRIPTION OF PROCEDURE: The patient was brought to the endoscopy suite and given topical lidocaine hypopharyngeal anesthesia and placed in lateral decubitus position. He was given intravenous sedation to the point of slurred speech and nystagmus with full cardiopulmonary monitoring. A bite block was placed. An Olympus video upper endoscope was passed in the hypopharynx. The vocal cords appeared normal. The scope was advanced to the esophagus, throughout its length it was entirely normal including the distal Electronically Signed By: SID FLOYD MD 11/19/21 9010 PATIENT NAME: MARTINA FLORES OPERATIVE REPORT DATE OF : 87 REPORT #: [id number] PHYSICIAN: SID FLOYD MD PCP: NO PRIMARY CARE PHYSICIAN REPORT IS CONFIDENTIAL AND NOT TO BE RELEASED WITHOUT AUTHORIZATION [facility] [address], [place] [address] Signed portion. There was no Carey's epithelium. No inflammation, stricture, or other problem. The scope was passed to the stomach, which was insufflated with air. There was no significant bile in the stomach. There was a mild diffuse gastritis noted and passage to the antrum allowed for visualization of two small erosions of the pyloric area directly across from each other consistent with "kissing erosions." The scope was passed through the pylorus into the duodenum. Overall, it appeared reasonably normal. Biopsies were obtained there. The scope was withdrawn and biopsy taken of the pyloric erosion itself as well as biopsies of the antrum for both DERRICK and pathologic testing. Retroflexed view undertaken showed an optimal flap valve, having undergone Hill repair only two years ago. The proximal stomach had inflammation as well and biopsies were obtained there. The scope was withdrawn to the distal esophagus where biopsies were obtained. The mucosa looked entirely normal. Careful withdrawal of the scope showed no other abnormality. CONCLUDING DIAGNOSIS: His symptoms are well explained by diffuse gastritis and erosive changes of the pylorus. PLAN: We will initiate Prilosec 20 mg p.o. b.i.d. as well as Carafate 1 g p.o. q.i.d. We will see him back in 4 to 6 weeks and assess his progress regarding symptom control. Await biopsies as well as evolution of his CLOtest biopsies. MD LISA Lemon/MODL /[id number] Copies: ~ Electronically Signed By: SID FLOYD MD 11/19/212199 PATIENT NAME: MARTINA FLORES OPERATIVE REPORT DATE OF : 87 REPORT #: [id number] PHYSICIAN: SID FLOYD MD PCP: NO PRIMARY CARE PHYSICIAN REPORT IS CONFIDENTIAL AND NOT TO BE RELEASED WITHOUT AUTHORIZATION
--- NOTE | 2021-11-21 15:11 | PATH ---
[facility] [address] [place], [place] [address] Signed SPECIMEN(S): A DUODENAL BIOPSY SPECIMEN(S): B PYLORIC EROSIONS BIOPSY SPECIMEN(S): C ANTRUM/PYLORUS BIOPSY SPECIMEN(S): D PROXIMAL STOMACH BIOPSY SPECIMEN(S): E LOW ESOPHAGEAL BIOPSY SPECIMEN SOURCE: A. DUODENAL BIOPSY B. PYLORIC EROSIONS BIOPSY C. ANTRUM/PYLORUS BIOPSY D. PROXIMAL STOMACH BIOPSY E. LOW ESOPHAGEAL BIOPSY CLINICAL HISTORY: Esophagogastroduodenoscopy. Preop: Esophageal dysphagia, gastroesophageal reflux disease with esophagitis. Postop: Diffuse gastritis, pyloric erosion. FINAL PATHOLOGIC DIAGNOSIS: A. Duodenum, biopsy: - No significant histopathology. B. Pyloric erosions, biopsy: - Chronic active gastritis with focal intestinal metaplasia. - No evidence of H. pylori at this time (see comment). C. Antrum/pylorus, biopsy: - No significant histopathologic alterations. D. Proximal stomach, biopsy: - Mild mucosal congestion. - No evidence of erosions or gastritis. E. Low esophagus, biopsy: - Portions of unremarkable squamous mucosa. COMMENT: Regarding specimen A, the sections from the duodenal biopsy show portions of duodenal mucosa with long finger-like villi. There is no villous atrophy, crypt hyperplasia or intraepithelial lymphocytosis, making a diagnosis of celiac disease unlikely. There is no evidence of peptic duodenitis, microorganisms, abnormal infiltrates or neoplasia. Regarding specimen B, the sections through the gastric biopsy show portions of acute and chronically inflamed gastric mucosa. The lamina propria contains neutrophils, lymphocytes and plasma cells. A PATIENT NAME: MARTINA FLORES PATHOLOGY DATE OF : 87 REPORT #: [id number] PHYSICIAN: YADIRA CASTELLANOS PCP: NO PRIMARY CARE PHYSICIAN REPORT IS CONFIDENTIAL AND NOT TO BE RELEASED WITHOUT AUTHORIZATION [facility] [address], [place] [address] Signed careful search is made for H. pylori and none are identified at this time. There is focal intestinal metaplasia. There is no dysplasia associated with the intestinal metaplasia and no evidence of either epithelial or lymphocytic malignancy. Confirmatory immunohistochemical stains are pending and results will follow in an addendum report. Regarding specimen C, the sections through the gastric biopsies show fragments of histologically unremarkable antral mucosa. There is no evidence of acute or chronic inflammation. There is no evidence of H. pylori, intestinal metaplasia, abnormal infiltrates or neoplasia. Regarding specimen D, the sections through the gastric biopsies show fragments of histologically unremarkable oxyntic mucosa. The mucosal biopsies show congestion, but there is no evidence of an erosion. There is no evidence of acute or chronic inflammation. There is no evidence of H. pylori, intestinal metaplasia, abnormal infiltrates or neoplasia. Regarding specimen E, the esophageal biopsy shows normal-appearing squamous epithelium. There is no evidence of acute or chronic inflammation. [id number] MICROSCOPIC EXAMINATION: Histologic sections of all submitted blocks are examined by light microscopy. These findings, together with the gross examination, support the pathologic diagnosis. GROSS DESCRIPTION: Five specimens are received in five containers, labeled "VERONA." A. The specimen, labeled "VERONA, duodenum biopsy," is received in formalin and consists of two daly soft tissue fragments that measure 0.2 cm in greatest dimension. The specimen is entirely submitted in cassette (A1). B. The specimen, labeled "VERONA, pyloric erosion biopsy," is received in formalin and consists of one daly soft tissue fragment that measures 0.2 cm in greatest dimension. The specimen is entirely submitted in cassette (B1). C. The specimen, labeled "VERONA, antrum biopsy," is received in formalin and consists of two daly soft tissue fragments that measure 0.2 cm in greatest dimension. The specimen is entirely submitted in cassette (C1). D. The specimen, labeled "VERONA, proximal stomach biopsy," is received in formalin and consists of two daly soft tissue fragments that measure 0.2-0.5 cm PATIENT NAME: MARTINA FLORES PATHOLOGY DATE OF : 87 REPORT #: [id number] PHYSICIAN: YADIRA PATHOLOGY PCP: NO PRIMARY CARE PHYSICIAN REPORT IS CONFIDENTIAL AND NOT TO BE RELEASED WITHOUT AUTHORIZATION [facility] [address], [place] [address] Signed in greatest dimension. The specimen is entirely submitted in cassette (D1). E. The specimen, labeled "VERONA, low esophagus biopsy," is received in formalin and consists of one daly soft tissue fragment that measures 0.2 cm in greatest dimension. The specimen is entirely submitted in cassette (E1). JS (under the direct supervision of a pathologist) The Gross Description was prepared using a voice recognition system. The report was reviewed for accuracy; however, sound-alike word errors, addition and/or deletions may occur. If there is any question about this report, please contact Client Services. PERFORMING LABORATORY: The technical component was performed by [employer], [address] [place] [id number] (Instrument Repairer: Lizet Cheng MD; CLIA# [id number]). The professional interpretation was performed by [employer], [facility], [address] [place] [address]. Diagnostician: Momo Stout MD Pathologist Electronically Signed 11/21/2021 Copies: ~ PATIENT NAME: MARTINA FLORES PATHOLOGY DATE OF : 87 REPORT #: [id number] PHYSICIAN: [employer] PATHOLOGY PCP: NO PRIMARY CARE PHYSICIAN REPORT IS CONFIDENTIAL AND NOT TO BE RELEASED WITHOUT AUTHORIZATION
== END 2021-11-18 09:40 | disposition home or self-care (01) ==
LOC: DS 06:30 → OPS 06:30
PROVIDERS: ATTEND Surgery
PROC: 0DB78ZX Excision of Stomach, Pylorus, Via Natural or Artificial Opening Endoscopic, Diagnostic (ICD-10-PCS; principal; 2021-11-18 07:30)
DX: K29.70 Gastritis, unspecified, without bleeding (principal); R13.19 Other dysphagia; Z90.49 Acquired absence of other specified parts of digestive tract
CPT/HCPCS: 99153; A9270; G0500; J2250; J3010; J7121